=== PATIENT | female | born 1985 | race Hispanic/Latino ===

== ENCOUNTER 2017-07-19 15:53 | Emergency (ER) | payer SELFPAY ==
[~2017-07-19] VITALS: Ht 149.9 cm; Wt 72.0 kg
[~2017-07-19 15:53] MED LIST: FERR SULFATE325 MG PO; IBUPROFEN600 MG PO; PRE-NATAL PO; ZOFRAN ODT4 MG OR
[2017-07-19 16:54] LABS: HEMATOCRIT 32.3 % (37.0-47.0); HEMOGLOBIN 9.8 g/dl (12.0-16.0); IMMATURE GRANULOCYTES 0.7 % (0.0-1.0); MEAN CELL VOLUME 87.8 fL CALC (80.0-100.0); MEAN CORPUSCULAR HGB 26.6 pG CALC (26.0-32.0); MEAN CORPUSCULAR HGB CONC 30.3 g/L CALC (32.0-36.0); NEUT# 7.84 thou/uL (2.00-7.15); RED BLOOD COUNT 3.68 mill/uL (4.20-5.60); RED CELL DISTRI WIDTH 20.9 % (11.5-15.5)
[2017-07-19 17:45] VITALS: BP 131/89
== END 2017-07-19 17:55 | disposition home or self-care (01) | DRG 776 ==
LOC: ED 15:53
PROVIDERS: Family Medicine
DX: O71.2 Postpartum inversion of uterus (principal)